=== PATIENT | male | born 1935 | race Caucasian/White ===

== ENCOUNTER → 2017-01-09 | Outpatient (CLI) | payer MEDICARE, BC ==
[~2017-01-09] MED LIST: AMARYL PO; AMARYL1 MG PO; AMOXIL500 M1 PO; ASPIRIN EC81 M1 PO; ASPIRIN81 M2 PO; CAPOZIDE PO; CENTRUM SILVER PO; CENTRUM SILVER1 EACH PO; CEPHALEXIN250 MG PO; FERRO-TIME325 MG PO; FIBER500 MG PO; FINASTERIDE5 M1 PO; FINASTERIDE5 MG PO; HYDROCHLOROTHIA25 MG PO; K-DUR20 ME1 PO; LISINOPRIL20 MG PO; METOPROLOL TART25 MG PO; MGO400 MG PO; MULTI VITAMIN1 EACH PO; NIFEDIAC CC60 MG PO; NIFEDICAL PO; NIFEDIPINE PO; NORVASC10 MG PO; PROTONIX20 MG PO; SIMBRINZA 1%-0.28 ML OU; SIMVASTATIN20 MG PO; TRAVATAN5 ML OP; TRAVATAN5 ML OS; TRAVATAN5 ML OU; ZOCOR20 MG PO; [UNRECOGNIZED DRUG - OTHER] PO; [UNRECOGNIZED DRUG - OTHER] PO
--- NOTE | ~2017-01-09 | CT14 ---
[facility] A Service of [facility] & [facility] RADIOLOGY TEXT RESULTS PATIENT: NISHANT GAINES [facility] UNIT #: [id number] AGE: [address]: Doris Rodriguez SEX: M ORDER DR: [id number] [facility] [address] [place], [place] [address] [id number] O MR#: [id number] [facility] #: [id number] NAME: NISHANT GAINES : 1935 SEX: M STUDY DATE/TIME: 01/09/2017 14:04 UNIT: [facility] ROOM: STUDY DESCRIPTION: CT Angio Abdomen and Pelvis Attending Physician: Doris Rodriguez A.P.R.N. Referring Physician: Doris Rodriguez A.P.R.N. Ordering Physician: Doris Rodriguez A.P.R.N. Primary Care Physician: Yazan Vance M.D. MEDICAL IMAGING REPORT This report is preliminary unless electronic signature is present EXAM CT abdomen and pelvis with angiograph reconstructions INDICATION Followup aortic aneurysm diagnosed 2 years ago. Patient has had stent graft therapy. TECHNIQUE Initially unenhanced images were obtained through the abdomen and pelvis and then the patient was given 100 mL of Isovue-370 and arterial phase imaging was performed through the abdomen and pelvis followed by 90-second delayed images through the abdomen and pelvis. This CT exam was performed with one or more of the following radiation dose reduction techniques: automatic exposure control, adjustment of mA and/or kV according to patient size, and iterative reconstruction. FINDINGS There is some left base atelectasis which is minimal and similar to that seen on 03/06/2013. The gallbladder contains 2 o 3 stones measuring up to 18.0 mm in diameter. There is no wall thickening. The liver, spleen, pancreas, adrenal glands and kidneys are normal in appearance. There was an exophytic cysts associated with the right kidney upper pole but that has resolved. The upper abdominal aorta is normal in size. There is an aortic stent graft present extending from just below the renal arteries down into the common iliac arteries. The previous study showed a curvilinear collection of contrast extending laterally from the stent graft that was consistent with a leak. I presume that has been treated with endovascular therapy. The area is increased in density on the precontrast studies suggesting it is some type of glue in this region. I do not see any evidence of an active leak. Maximum size of the aorta is about 5.5 cm as compared with 5.2 cm on the prior study. The bowel shows numerous colonic diverticula and is otherwise normal. The bladder and [facility] A Service of [facility] RADIOLOGY TEXT RESULTS PATIENT: NISHANT GAINES LOCATION: [facility] : 33 UNIT #: [id number] AGE: [address]: Doris Rodriguez SEX: M ORDER DR: prostate gland are normal. There is a right hip prosthesis present. There are degenerative changes in the lumbar spine. There is actually more recent comparison from 08/30/2014 and the aneurysm was 5.5 cm in size at that time. 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 IMPRESSION 1. The [place] aortic aneurysm is about 5.5 cm in maximum dimension, unchanged from the prior 2 studies dating back to 2013. There is no evidence of current leak. The patient appeared to have a previous leak from the stent was treated with some type of endovascular therapy. 2. 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 3. Extensive colonic diverticula. 4. Otherwise the study is negative. Dictated by... Lloyd Leslie M.D. THIS IS AN ELECTRONICALLY VERIFIED REPORT Lloyd Leslie M.D. at 01/10/2017 12:18 PM Lj TD: 01/10/2017 09:51 JOB #: [id number] MEDICAL IMAGING REPORT COPY
== END | disposition home or self-care (01) ==
LOC: CCAT 13:00
DX: I71.4 Abdominal aortic aneurysm, without rupture (principal); K57.30 Diverticulosis of large intestine without perforation or abscess without bleeding; Z98.890 Other specified postprocedural states
CPT/HCPCS: 74174; Q9967